=== PATIENT | male | born 1990 ===

== ENCOUNTER 2024-01-10 05:36 | Day surgery (SDC) | payer OTHER ==
[~2024-01-10] VITALS: Ht 182.9 cm; Wt 110.5 kg
[2024-01-10] VITALS (12 sets, daily range): BP systolic 108–176; BP diastolic 71–118; PULSE 60–74; RESP 10–21
[~2024-01-10 05:36] MED LIST: AEC81 PO; ATOR40TA69 PO; CARV6.25 PO; FURO-151 PO; HYDR-3421 PO; ISOS10TA8 PO; METF-444 PO; NIFE-40 PO; SERT-438 PO
[2024-01-10 06:25] LABS: BASOPHILS # (AUTO) 0.08 K/uL (0.00-0.20); BASOPHILS % (AUTO) 0.9 % (0.0-5.0); EOSINOPHILS # (AUTO) 0.14 K/uL (0.00-0.70); EOSINOPHILS % (AUTO) 1.6 % (0.0-8.0); HEMATOCRIT 45.6 % (42-54); IMMATURE GRANULOCYTE ABSOLUTE 0.02 K/uL (0-1); LYMPHOCYTES # (AUTO) 3.4 K/uL (1.0-4.8); MEAN CORPUSCULAR HEMOGLOBIN 27.9 pg (27.0-33.0); MEAN CORPUSCULAR HGB CONC 33.3 g/dL (32.0-36.0); MEAN CORPUSCULAR VOLUME 83.8 fL (79-99); MONOCYTES # (AUTO) 0.5 K/uL (0.1-1.0); NEUTROPHILS # (AUTO) 4.6 K/uL (1.8-7.7); NEUTROPHILS % (AUTO) 52.3 % (40.0-77.0); PLATELET COUNT (AUTO) 293 K/uL (130-400); RED BLOOD CELL COUNT(AUTO) 5.44 MIL/uL (4.50-6.20); RED CELL DISTRIBUTION WIDTH 13.2 % (11.0-15.5); WHITE BLOOD COUNT (AUTO) 8.8 K/uL (4.8-10.8)
[2024-01-10 06:32] LABS: CREATININE 1.1 mg/dL (0.5-1.5); POTASSIUM 3.6 mmol/L (3.5-5.1)
[2024-01-10 06:45] LABS: APPEARANCE,URINE CLOUDY (CLEAR); BILIRUBIN,URINE NEGATIVE (NEGATIVE); COLOR,URINE YELLOW (YELLOW); GLUCOSE, URINE (UA) NEGATIVE (NEGATIVE); KETONES,URINE NEGATIVE (NEGATIVE); LEUKOCYTE ESTERASE ,URINE NEGATIVE Leu/uL (NEGATIVE); NITRATE,URINE NEGATIVE (NEGATIVE); OCCULT BLOOD,URINE NEGATIVE (NEGATIVE); PROTEIN,URINE 30 mg/dL (NEGATIVE); UROBILINOGEN,URINE 0.2 mg/dL (0.2-1.0)
[2024-01-10 06:49] LABS: INR 0.98 (0.85-1.15); PROTHROMBIN TIME 11.4 SEC (9.6-11.6)
[2024-01-10] MEDS: 0.9%NACL 1000ML 1,000 ML IV ONE (06:57)
[2024-01-10 07:16] LABS: B-TYPE NATRIURETIC PEPTIDE 19 pg/mL (0-100)
[2024-01-10 07:17] LABS: ADD UA MICROSCOPIC YES
[2024-01-10 07:20] LABS: MUCUS,URINE MANY LPF (None Seen); RBC,URINE 0-1 /HPF (0-1)
[2024-01-10] MEDS ORDERED: FENTANYL CITRATE PF 50 MCG/1 ML 2ML VIAL ONE (07:27)
[2024-01-10] MEDS ORDERED: LIDOCAINE HCL 400MG/20ML VIAL ONE (07:27)
[2024-01-10] MEDS ORDERED: NITROGLYCERIN 50MG VIAL ONE (07:28)
[2024-01-10] MEDS ORDERED: VERAPAMIL HCL 2.5 MG/ML VIAL ONE (07:28)
[2024-01-10] MEDS ORDERED: MIDAZOLAM HCL 1 MG/ML 2ML VIAL ONE ×2 (07:28→07:46)
[2024-01-10] MEDS ORDERED: HEPARIN 10,000 UNIT/10ML (1,000 UNIT/ML) VIAL ONE (07:28)
[2024-01-10] MEDS ORDERED: IOHEXOL-350 75 ML VIAL IV ONE (07:28)
[2024-01-10] MEDS ORDERED: HYDRALAZINE 20MG/ML VIAL IV PRN (08:30)
[2024-01-10] MEDS ORDERED: DEXTROSE 50%-WATER 50 ML DISP.SYRIN IV PRN (08:30)
[2024-01-10] MEDS ORDERED: GLUCAGON 1MG KIT 1 MG ML IM PRN (08:30)
[2024-01-10] MEDS: 0.9%NACL 1000ML 1,000 ML IV SCH (10:15)
== END 2024-01-10 12:20 | disposition home or self-care (01) ==
LOC: DAH 05:36
PROVIDERS: ATTEND Student in an Organized Health Care Education/Training Program
DX: I21.4 Non-ST elevation (NSTEMI) myocardial infarction (principal); I25.119 Atherosclerotic heart disease of native coronary artery with unspecified angina pectoris; I10 Essential (primary) hypertension; E78.5 Hyperlipidemia, unspecified; R73.03 Prediabetes; I25.2 Old myocardial infarction; Z79.899 Other long term (current) drug therapy; Z79.01 Long term (current) use of anticoagulants; Z79.84 Long term (current) use of oral hypoglycemic drugs; Z79.82 Long term (current) use of aspirin; Z98.890 Other specified postprocedural states; Z82.49 Family history of ischemic heart disease and other diseases of the circulatory system; Z83.3 Family history of diabetes mellitus
CPT/HCPCS: 93458; 80048; 83880; 85025; 85610; 85730; 82948 ×2; 81001; 36415; 93005; C1769; C1894; A4649; J3010; J3490 ×3; J7030; J1644 ×2; J2250 ×2; Q9967; A4215; A6251; A4222; A6260; A4221; A4663; A4216; A6206; A4606; A4223 ×3; 96360; 96361; 99156; 99157

== ENCOUNTER → 2024-02-18 | Outpatient (CLI) | payer OTHER ==
[~2024-02-18] MED LIST changes: -HYDR-3421 PO; -SERT-438 PO
== END | disposition home or self-care (01) ==
LOC: EDUNIT# 09:00 → SHCH 09:10
PROVIDERS: ATTEND Student in an Organized Health Care Education/Training Program
DX: R07.9 Chest pain, unspecified (principal)
CPT/HCPCS: 93306